=== PATIENT | female | born 1985 | race Caucasian/White ===

== ENCOUNTER 2018-05-23 07:12 | Inpatient (IN) | payer BC ==
[2018-05-23] MEDS: SODIUM CHLORIDE 0.9% FLUSH 10 ML SOL IV SCH ×2 (07:45→23:05)
[2018-05-23] MEDS ORDERED: OXYTOCIN 10000 MU/ML SOL ONE ×2 (07:48→08:56)
[2018-05-23] MEDS ORDERED: TERBUTALINE SULFATE 1 MG/ML SOL SC PRN (07:54)
[2018-05-23] MEDS ORDERED: OXYTOCIN 10000 MU/ML 20,000 MU in LACTATED RINGERS 1,000 ML IV SCH (08:00)
[2018-05-23] MEDS ORDERED: LACTATED RINGERS 1,000 ML IV SCH ×2 (08:00→08:30)
[2018-05-23] MEDS ORDERED: NALOXONE HYDROCHLORIDE 0.4 MG/ML SOL IV PRN (08:29)
[2018-05-23] MEDS ORDERED: NALBUPHINE HCL 20 MG/ML SOL IV PRN (08:29)
[2018-05-23] MEDS ORDERED: DIPHENHYDRAMINE 50 MG/ML SOL IV PRN (08:29)
[2018-05-23] MEDS: LACTATED RINGERS 1,000 ML IV PRN ×2 (08:30→09:00)
[2018-05-23] MEDS: LACTATED RINGERS 1,000 ML IV SCH ×2 (08:30→09:30)
[2018-05-23 08:50] LABS: BASOPHILS % (AUTO) 1 % (0-3); EOSINOPHILS % (AUTO) 1 % (0-9); HEMATOCRIT 36 % (35-47); HEMOGLOBIN 11.7 gm/dl (12.0-15.5); LYMPHOCYTES % (AUTO) 18.1 % (10-50); MEAN CORPUSCULAR HGB CONC 32.3 gm/dl (32.0-36.0); MEAN CORPUSCULAR VOLUME 90 fL (81-99); MONOCYTES % (AUTO) 4.1 % (0-12)
[2018-05-23] MEDS ORDERED: FENTANYL 250 MCG/ 5ML SOL ONE (09:03)
[2018-05-23] MEDS ORDERED: LIDOCAINE HCL 2% MPF 10 ML SOL ONE (09:03)
[2018-05-23] MEDS ORDERED: SODIUM CHLORIDE 0.9% FLUSH 10 ML SOL IV PRN (09:19)
[2018-05-23] MEDS ORDERED: MEPIVACAINE HCL 1% MPF 30 ML/VIAL SOL INFIL PRN (09:19)
[2018-05-23] MEDS ORDERED: CARBOPROST 250 MCG/ML SOL IM PRN (09:19)
[2018-05-23] MEDS ORDERED: OXYTOCIN 10000 MU/ML SOL IM PRN (09:19)
[2018-05-23] MEDS ORDERED: METHYLERGONOVINE MALEATE 0.2 MG/ML SOL IM PRN (09:19)
[2018-05-23] MEDS ORDERED: FENTANYL 100MCG/2ML SOL IV PRN (09:19)
[2018-05-23] MEDS ORDERED: EPHEDRINE SULFATE 50 MG/ML SOL IV PRN (09:30)
[2018-05-23] MEDS ORDERED: BISACODYL 10 MG SUP PR PRN (13:42)
[2018-05-23] MEDS ORDERED: BENZOCAINE/MENTHOL 1 SPR TOP PRN (13:42)
[2018-05-23] MEDS ORDERED: FLEET ENEMA PR PRN (13:42)
[2018-05-23] MEDS ORDERED: METHYLERGONOVINE MALEATE 0.2 MG TAB PO PRN (13:42)
[2018-05-23] MEDS ORDERED: TEMAZEPAM 15MG 15 MG CAP PO PRN (13:42)
[2018-05-23] MEDS: IBUPROFEN 600 MG TAB PO PRN ×2 (14:27→20:51)
[2018-05-23] MEDS: APAP/HYDROCODONE 1 EACH TABLET PO PRN ×2 (19:13→22:51)
[2018-05-23] MEDS: WITCH HAZEL 1 EA PAD TOP PRN (19:13)
[2018-05-23] MEDS: DOCUSATE SODIUM 100 MG SGL PO SCH (20:51)
[2018-05-23] MEDS ORDERED: RANITIDINE HCL 150 MG TAB PO SCH (21:00)
[2018-05-24] MEDS: IBUPROFEN 600 MG TAB PO PRN ×4 (03:36→23:33)
[2018-05-24] MEDS: APAP/HYDROCODONE 1 EACH TABLET PO PRN ×5 (03:36→23:32)
[2018-05-24] MEDS: SODIUM CHLORIDE 0.9% FLUSH 10 ML SOL IV SCH ×3 (04:51→20:56)
[2018-05-24] MEDS ORDERED: FAMOTIDINE 20 MG TAB ONE ×2 (08:53→20:45)
[2018-05-24] MEDS: MULTIVITAMIN2 1 EA TAB PO SCH (08:58)
[2018-05-24] MEDS: FOLIC ACID 1 MG TAB PO SCH (08:58)
[2018-05-24] MEDS: DOCUSATE SODIUM 100 MG SGL PO SCH ×2 (08:59→20:56)
[2018-05-24] MEDS: FAMOTIDINE 20 MG TAB PO SCH ×2 (10:20→20:56)
[2018-05-24] MEDS: FEXOFENADINE HCL 180 MG TAB PO SCH ×2 (11:30→13:19)
[2018-05-24] MEDS: CHOLECALCIFEROL 1,000 IU TAB PO SCH (11:31)
[2018-05-24] MEDS: WITCH HAZEL 1 EA PAD TOP PRN (20:56)
[2018-05-25] MEDS: IBUPROFEN 600 MG TAB PO PRN ×2 (00:34→06:54)
[2018-05-25 03:49] VITALS: RESP 16; O2SAT 98
[2018-05-25] MEDS: SODIUM CHLORIDE 0.9% FLUSH 10 ML SOL IV SCH (04:00)
[2018-05-25] MEDS: APAP/HYDROCODONE 1 EACH TABLET PO PRN ×2 (04:04→09:16)
[2018-05-25] MEDS ORDERED: FAMOTIDINE 20 MG TAB ONE (07:08)
[2018-05-25] MEDS: FAMOTIDINE 20 MG TAB PO SCH (08:53)
[2018-05-25] MEDS: DOCUSATE SODIUM 100 MG SGL PO SCH (08:53)
[2018-05-25] MEDS: MULTIVITAMIN2 1 EA TAB PO SCH (08:53)
[2018-05-25] MEDS: CHOLECALCIFEROL 1,000 IU TAB PO SCH (08:54)
[2018-05-25] MEDS: FEXOFENADINE HCL 180 MG TAB PO SCH (08:54)
[2018-05-25] MEDS: FOLIC ACID 1 MG TAB PO SCH (08:54)
[2018-05-25 12:37] VITALS: BP 125/71; PULSE 80; TEMP 97.6
== END 2018-05-25 12:55 | disposition home or self-care (01) | DRG 560 ==
LOC: OB 07:12 → OBSVTOIN 07:12
PROVIDERS: ADMIT Family Medicine; ATTEND Family Medicine
PROC: 10E0XZZ Delivery of Products of Conception, External Approach (ICD-10-PCS; principal; 2018-05-23)
PROC: 3E033VJ Introduction of Other Hormone into Peripheral Vein, Percutaneous Approach (ICD-10-PCS; 2018-05-23)
PROC: 0KQM0ZZ Repair Perineum Muscle, Open Approach (ICD-10-PCS; 2018-05-23)
PROC: 6A550ZT Pheresis of Cord Blood Stem Cells, Single (ICD-10-PCS; 2018-05-23)
DX: O80 Encounter for full-term uncomplicated delivery (principal); R19.09 Other intra-abdominal and pelvic swelling, mass and lump; Z3A.39 39 weeks gestation of pregnancy; Z37.0 Single live birth
CPT/HCPCS: 36415; 59025; 85018; 85025; J2590; J3010; A9270-GY